=== PATIENT | male | born 1960 | race African-American/Black ===

== ENCOUNTER 2021-12-29 12:36 | Emergency (ER) | payer OTHER ==
[2021-12-29 12:51] VITALS: RESP 20; TEMP 99.2; BMI 27.3
[2021-12-29 17:26] LABS: BASO % 0.8 % (0-2.0); HEMATOCRIT 43.9 % (35.4-49); HEMOGLOBIN 15.3 GM/dL (11.7-16.9); LYMPH % 40.1 % (8-40); MCH 29.3 pg (25.7-33.7); MCHC 34.9 g/dl (32.0-35.9); MEAN CELL VOLUME 84.1 fl (80-96); MEAN PLT VOLUME 8.5 fl (7.5-11.1); MONO % 7.2 % (3.8-10.2); NEUT % 49.9 % (42.8-82.8); PLATELET COUNT 330 10^3/uL (134-434); RBC 5.22 M/mm3 (4.00-5.60); RDW 13.8 % (11.9-15.9); WHITE BLOOD COUNT 7.3 K/mm3 (4.0-10.0)
[2021-12-29 17:41] LABS: CHLORIDE 101 mmol/L (98-107); SODIUM 132 mmol/L (136-145)
[2021-12-29 17:43] LABS: CALCIUM 9.3 mg/dL (8.5-10.1)
[2021-12-29 17:44] LABS: ALBUMIN 3.8 g/dl (3.4-5.0); BLOOD UREA NITROGEN 18.2 mg/dL (7-18); CO2 29 mmol/L (21-32); GLUCOSE,RANDOM 95 mg/dL (74-106); MAGNESIUM 2.7 mg/dL (1.8-2.4)
[2021-12-29 17:47] LABS: CREATININE 1.1 mg/dL (0.55-1.3)
[2021-12-29 17:49] LABS: TOT PROT 9.2 g/dl (6.4-8.2)
[2021-12-29 17:50] LABS: ALK PHOS 61 U/L (45-117)
[2021-12-29 19:42] LABS: SGOT/AST 153 U/L (15-37)
[2021-12-29 19:48] VITALS: BP 115/83; PULSE 90
[2021-12-29 20:11] LABS: ANION GAP 1 MMOL/L (8-16)
[2021-12-29 21:13] LABS: BLOOD UREA NITROGEN 18.8 mg/dL (7-18); CALCIUM 9.5 mg/dL (8.5-10.1)
[2021-12-29 21:14] LABS: ALBUMIN 3.6 g/dl (3.4-5.0)
[2021-12-29 21:17] LABS: CREATININE 1.2 mg/dL (0.55-1.3)
[2021-12-29 21:18] LABS: BILIRUBIN,TOTAL 0.7 mg/dL (0.2-1)
[2021-12-29 21:54] LABS: TOT PROT 7.2 g/dl (6.4-8.2)
== END 2021-12-29 22:00 | disposition home or self-care (01) ==
LOC: JER 12:36
DX: R00.2 Palpitations (principal)
CPT/HCPCS: 36415; 71045-TC-FY; 80053; 83735; 84439; 84443; 84484; 85025; 93005; 93010; 99285-25